=== PATIENT | male | born 1940 | race Caucasian/White ===

== ENCOUNTER → 2016-11-18 | Outpatient (CLI) | payer OTHER | LOC: LAB 22:36 | DX: Z02.83 Encounter for blood-alcohol and blood-drug test (principal) | CPT/HCPCS: 36415 ==

== ENCOUNTER → 2020-08-18 | Outpatient (CLI) | payer MEDICARE | LOC: OPSV 13:00 | DX: M81.0 Age-related osteoporosis without current pathological fracture (principal) | CPT/HCPCS: 96372; J3111 ==

== ENCOUNTER → 2020-09-18 | Outpatient (CLI) | payer MEDICARE ==
[~2020-09-18] VITALS: Ht 185.4 cm; Wt 78.9 kg
== END ==
LOC: OPSV 12:49
DX: M81.0 Age-related osteoporosis without current pathological fracture (principal)
CPT/HCPCS: 96372; J3111

== ENCOUNTER → 2020-10-16 | Outpatient (CLI) | payer MEDICARE ==
[~2020-10-16] VITALS: Ht 185.4 cm; Wt 78.9 kg
== END ==
LOC: OPSV 12:56
DX: M81.0 Age-related osteoporosis without current pathological fracture (principal)
CPT/HCPCS: 96372; J3111

== ENCOUNTER → 2020-10-27 | Outpatient (CLI) | payer MEDICARE | LOC: KOH-I 14:27 | DX: R63.4 Abnormal weight loss (principal); S22.000A Wedge compression fracture of unspecified thoracic vertebra, initial encounter for closed fracture; M85.852 Other specified disorders of bone density and structure, left thigh; M51.36 Other intervertebral disc degeneration, lumbar region | CPT/HCPCS: 71046; 72070; 72100; 77080 ==

== ENCOUNTER → 2020-11-18 | Outpatient (CLI) | payer MEDICARE ==
[~2020-11-18] VITALS: Ht 185.4 cm; Wt 78.9 kg
== END ==
LOC: OPSV 10:55
DX: Z53.8 Procedure and treatment not carried out for other reasons (principal)
CPT/HCPCS: J3111

== ENCOUNTER → 2020-11-27 | Outpatient (CLI) | payer MEDICARE ==
[~2020-11-27] VITALS: Ht 185.4 cm; Wt 78.9 kg
== END ==
LOC: OPSV 10:00
DX: M81.0 Age-related osteoporosis without current pathological fracture (principal)
CPT/HCPCS: 96372; J3111

== ENCOUNTER → 2020-12-31 | Outpatient (CLI) | payer MEDICARE ==
[~2020-12-31] VITALS: Ht 185.4 cm; Wt 78.9 kg
== END ==
LOC: OPSV 12-25 13:00
DX: M81.0 Age-related osteoporosis without current pathological fracture (principal)
CPT/HCPCS: 96372; J3111

== ENCOUNTER → 2021-01-27 | Outpatient (CLI) | payer MEDICARE | LOC: KOH-I 01-01 11:00 | DX: R94.5 Abnormal results of liver function studies (principal); K80.20 Calculus of gallbladder without cholecystitis without obstruction | CPT/HCPCS: 76705 ==

== ENCOUNTER → 2021-01-28 | Outpatient (CLI) | payer MEDICARE ==
[~2021-01-28] VITALS: Ht 185.4 cm; Wt 78.9 kg
== END ==
LOC: OPSV 01-18 09:30
DX: M81.0 Age-related osteoporosis without current pathological fracture (principal)
CPT/HCPCS: 96372; J3111

== ENCOUNTER → 2021-03-08 | Outpatient (CLI) | payer MEDICARE ==
[~2021-03-08] VITALS: Ht 185.4 cm; Wt 78.9 kg
== END ==
LOC: OPSV 12:00
DX: M81.0 Age-related osteoporosis without current pathological fracture (principal)
CPT/HCPCS: 96372; J3111

== ENCOUNTER → 2021-04-05 | Outpatient (CLI) | payer MEDICARE ==
[~2021-04-05] VITALS: Ht 185.4 cm; Wt 78.9 kg
== END ==
LOC: OPSV 13:00
DX: M81.0 Age-related osteoporosis without current pathological fracture (principal)
CPT/HCPCS: 96372; J3111

== ENCOUNTER → 2021-05-06 | Outpatient (CLI) | payer MEDICARE ==
[~2021-05-06] VITALS: Ht 185.4 cm; Wt 78.9 kg
== END ==
LOC: OPSV 13:00
DX: M81.0 Age-related osteoporosis without current pathological fracture (principal)
CPT/HCPCS: 96372; J3111

== ENCOUNTER 2021-09-22 18:49 | Inpatient (IN) | payer MEDICARE ==
[~2021-09-22] VITALS: Ht 177.8 cm; Wt 73.9 kg
[~2021-09-22 18:49] MED LIST: VITAMIN D21250 MCG PO
[2021-09-22 21:15] LABS: HEMOGLOBIN 12.4 gm/dl (14.0-17.5); RED BLOOD COUNT 4.34 M/UL (4.20-5.50); WHITE BLOOD COUNT 8.7 K/UL (4.5-11.0)
[2021-09-23] MEDS ORDERED: THERAGRAN M TAB1 EA PO (09:29)
[2021-09-23] MEDS ORDERED: ZESTRIL 40 MG T40 MG PO (09:30)
[2021-09-23] MEDS ORDERED: ANORO ELLIPTA1 EACH INH (09:31)
[2021-09-23] MEDS ORDERED: NORVASC5 MG PO (09:32)
[2021-09-23] MEDS ORDERED: CILOSTAZOL50 MG PO (09:32)
[2021-09-23] MEDS ORDERED: PLAQUENIL 200200 MG PO (09:32)
[2021-09-23] MEDS ORDERED: PROAIR HFA8.5 GM INH (09:34)
[2021-09-23] MEDS ORDERED: COREG25 MG PO (09:34)
[2021-09-23] MEDS ORDERED: FERROUS SULFAT325 MG PO (09:35)
[2021-09-23] MEDS ORDERED: PAIN RELIEVER500 M1 PO (09:37)
[2021-09-23] MEDS ORDERED: HYDROCODON-ACE1 EAC4 PO (15:07)
[2021-09-23] MEDS ORDERED: LEVOFLOXACIN250 MG PO (15:07)
[2021-09-23] MEDS ORDERED: CLINDAMYCIN HC300 MG PO (15:07)
[2021-09-24 02:08] LABS: HEMOGLOBIN 11.1 gm/dl (14.0-17.5); WHITE BLOOD COUNT 8.1 K/UL (4.5-11.0)
[2021-09-24 02:09] LABS: RED BLOOD COUNT 3.8 M/UL (4.20-5.50)
== END 2021-09-24 14:40 | disposition home or self-care (01) | DRG 244 ==
LOC: ER1 18:49 → CDU 22:49 → PROG CARE 09-23 15:40
PROVIDERS: Internal Medicine; Physician Assistant; ADMIT Internal Medicine
PROC: 02H63JZ Insertion of Pacemaker Lead into Right Atrium, Percutaneous Approach (ICD-10-PCS; 2021-09-22)
PROC: 02HL3JZ Insertion of Pacemaker Lead into Left Ventricle, Percutaneous Approach (ICD-10-PCS; 2021-09-22)
PROC: 02HK3JZ Insertion of Pacemaker Lead into Right Ventricle, Percutaneous Approach (ICD-10-PCS; 2021-09-22)
PROC: 0JH607Z Insertion of Cardiac Resynchronization Pacemaker Pulse Generator into Chest Subcutaneous Tissue and Fascia, Open Approach (ICD-10-PCS; 2021-09-22)
PROC: B24BZZZ Ultrasonography of Heart with Aorta (ICD-10-PCS; principal; 2021-09-23)
DX: I44.1 Atrioventricular block, second degree (principal); M19.91 Primary osteoarthritis, unspecified site; M81.0 Age-related osteoporosis without current pathological fracture; Z20.822 Contact with and (suspected) exposure to COVID-19; D50.9 Iron deficiency anemia, unspecified; J44.9 Chronic obstructive pulmonary disease, unspecified; I12.9 Hypertensive chronic kidney disease with stage 1 through stage 4 chronic kidney disease, or unspecified chronic kidney disease; F17.210 Nicotine dependence, cigarettes, uncomplicated; I73.9 Peripheral vascular disease, unspecified; I35.0 Nonrheumatic aortic (valve) stenosis; I48.0 Paroxysmal atrial fibrillation; N18.30 Chronic kidney disease, stage 3 unspecified; Z98.890 Other specified postprocedural states; Z79.899 Other long term (current) drug therapy
CPT/HCPCS: ECHO; 36415; 71045; 80048; 80053; 82550; 82553; 83735; 83874; 84439; 84443; 84484; 85025; 93005; 93306; 99152; 99153; 99285; C1769; C1898; C1900; C2621; G0378; J1644; J2250; J2270; J3010; J3370; J7040; J7050; J7070; Q9965; U0002